=== PATIENT | female | born 1950 | race Asian ===

== ENCOUNTER 2022-09-10 10:31 | Outpatient (CLI) | payer MEDICARE, SELFPAY ==
[2022-09-10 22:26] LABS: Chloride* 102 mmol/L (96-114); Potassium* 4.8 mmol/L (3.6-5.1); Sodium* 141 mmol/L (135-149)
[2022-09-10 22:29] LABS: Carbon Dioxide* 29 mmol/L (20-32); Creatinine* 0.8 mg/dL (0.5-1.5); Estimated Glomerular Filt Rate 79 ml/min
[2022-09-10 22:30] LABS: Blood Urea Nitrogen* 17 mg/dL (7-30); Calcium* 9.9 mg/dL (8.4-10.6); Glucose* 108 mg/dL (60-115)
== END 2022-09-10 10:32 | disposition home or self-care (01) ==
LOC: LKVREF 10:32
PROVIDERS: PCP Emergency Medicine; Visit Provider Emergency Medicine
DX: I10 Essential (primary) hypertension (principal)
CPT/HCPCS: 80048

== ENCOUNTER 2022-12-23 09:12 | Outpatient (CLI) | payer MEDICARE, SELFPAY | END 2022-12-23 09:13 | disposition home or self-care (01) | PROVIDERS: PCP Emergency Medicine; Visit Provider Emergency Medicine | DX: E78.5 Hyperlipidemia, unspecified (principal); I10 Essential (primary) hypertension; M10.9 Gout, unspecified | CPT/HCPCS: 80053; 80061; 82043; 82570 ==

== ENCOUNTER 2024-04-05 08:20 | Outpatient (CLI) | payer MEDICARE, SELFPAY | END 2024-04-05 08:21 | disposition home or self-care (01) | LOC: LKVREF 08:21 | PROVIDERS: PCP Emergency Medicine; Visit Provider Emergency Medicine | DX: M10.9 Gout, unspecified (principal); I10 Essential (primary) hypertension; E78.5 Hyperlipidemia, unspecified | CPT/HCPCS: 80053; 80061; 82043; 82570; 84550 ==

== ENCOUNTER 2025-07-04 08:07 | Outpatient (CLI) | payer MEDICARE, SELFPAY | END 2025-07-04 08:08 | disposition home or self-care (01) | LOC: NFLDREF 07-06 13:48 | PROVIDERS: Visit Provider Physician Assistant Medical | DX: Z00.00 Encounter for general adult medical examination without abnormal findings (principal); M10.9 Gout, unspecified; I10 Essential (primary) hypertension; E78.5 Hyperlipidemia, unspecified; R73.03 Prediabetes | CPT/HCPCS: 80053; 80061; 82043; 82570; 84443 ==